=== PATIENT | female | born 1985 | race American Indian/Alaskan Native ===

== ENCOUNTER 2017-04-22 14:11 | Emergency (ER) | payer SELFPAY ==
[2017-04-22 14:43] LABS: Basophils % (Auto) 0.8 % (0.0-1.8); Eosinophils % (Auto) 1.3 % (0.0-4.3); Hematocrit 37.3 % (30.3-42.9); Hemoglobin 12.9 gm/dl (10.1-14.3); Mean Corpuscular HGB Conc 35 % (30-34); Mean Corpuscular Hemoglobin 31 pg (28-32); Mean Corpuscular Volume 89 fl (79-97); Red Cell Distribution Width 13.4 % (13.2-15.2); White Blood Count 6.9 K/mm3 (4.5-11.0)
[2017-04-22 15:07] LABS: Alanine Aminotransferase 15 units/L (7-56); Albumin/Globulin Ratio 1.2 %; Alkaline Phosphatase 44 units/L (35-129); Anion Gap 15 mmol/L; BUN/Creatinine Ratio 10; Blood Urea Nitrogen 7 mg/dL (7-17); Calcium 8.7 mg/dL (8.4-10.2); Carbon Dioxide 25 mmol/L (22-30); Chloride 100.2 mmol/L (98-107); Glucose 78 mg/dL (65-100); Lipase 27 units/L (13-60); Potassium 4.3 mmol/L (3.6-5.0); Sodium 136 mmol/L (137-145); Total Protein 7.3 g/dL (6.3-8.2)
[2017-04-22 15:20] LABS: Platelet Count 168 K/mm3 (140-440)
[2017-04-22 15:24] LABS: Bacteria,Urine 3+ /HPF (Negative); Bilirubin,Urine NEG (Negative); Blood,Urine NEG (Negative); Ketones,Urine NEG (Negative); Leukocyte Esterase,Urine NEG (Negative); Mucus,Urine FEW /HPF; Nitrite,Urine NEG (Negative); Protein,Urine <15 mg/dL mg/dL (Negative); Urobilinogen,Urine < 2.0 mg/dL (<2.0)
--- NOTE | 2017-04-22 22:18 | Emergency Department Report ---
ED Abdominal Pain HPI - General Chief Complaint: Abdominal Pain Stated Complaint: CHEST AND ABDOMINAL PAIN Time Seen by Provider: 04/22/17 22:02 Source: patient Mode of arrival: Ambulatory Limitations: No Limitations - History of Present Illness Initial Comments: Patient is a 32 years old female came today with a chief complaint of left upper quadrant pain and left flank pain for the last 3 days. Patient denied any hematuria or dysuria. No nausea no vomiting. MD Complaint: abdominal pain, flank pain -: days(s) Location: LUQ, L flank Radiation: none Severity scale (0 -10): 5 Quality: dull - Related Data Allergies Allergy/AdvReac Type Severity Reaction Status Date / Time latex Allergy Rash Verified 04/22/17 14:28 ED Review of Systems ROS: Stated complaint: CHEST AND ABDOMINAL PAIN Other details as noted in HPI Comment: All other systems reviewed and negative Constitutional: denies: chills, fever Respiratory: denies: cough Cardiovascular: denies: chest pain, palpitations Gastrointestinal: abdominal pain. denies: nausea, vomiting, diarrhea, constipation, hematemesis, melena, hematochezia Musculoskeletal: denies: back pain, joint swelling Neurological: denies: headache, weakness, numbness, paresthesias, confusion ED Past Medical Hx - Past Medical History Previous Medical History?: No - Surgical History Past Surgical History?: No - Social History Smoking Status: Never Smoker Substance Use Type: None ED Physical Exam - General Limitations: No Limitations General appearance: alert, in no apparent distress - Head Head exam: Present: atraumatic, normocephalic, normal inspection - Eye Eye exam: Present: normal appearance, PERRL - ENT ENT exam: Present: normal exam - Neck Neck exam: Present: normal inspection, full ROM. Absent: tenderness - Respiratory Respiratory exam: Present: normal lung sounds bilaterally. Absent: respiratory distress, wheezes, rales, rhonchi, stridor, chest wall tenderness - Cardiovascular Cardiovascular Exam: Present: regular rate, normal rhythm, normal heart sounds - GI/Abdominal GI/Abdominal exam: Present: soft, tenderness (left upper quadrant tenderness), normal bowel sounds. Absent: distended, guarding, rebound, rigid, mass, bruit, pulsatile mass, hernia - Extremities Exam Extremities exam: Present: normal inspection, normal capillary refill. Absent: full ROM, tenderness - Back Exam Back exam: Present: normal inspection, CVA tenderness (L). Absent: tenderness, CVA tenderness (R) - Neurological Exam Neurological exam: Present: alert, oriented X3, CN II-XII intact, normal gait, reflexes normal. Absent: motor sensory deficit - Skin Skin exam: Present: warm, intact, normal color ED Course Vital Signs 04/22/17 04/22/17 14:28 22:18 Temperature 99.1 F 97.3 F L Pulse Rate 99 H 65 Respiratory 18 16 Rate Blood Pressure 117/69 Blood Pressure 115/70 [Right] O2 Sat by Pulse 100 97 Oximetry - Reevaluation(s) Reevaluation #1: 04/23/17 00:31 Patient stated that she is feeling better. I informed the patient about her CT abdomen and pelvis results and the need for follow-up. Patient understood. ED Medical Decision Making - Lab Data Result diagrams: 04/22/17 14:34 04/22/17 14:34 - Radiology Data Radiology results: report [place] [address] Cat Scan Report Signed Patient: MONIQUE COURTNEY MR#: [id number] : 1985 Acct:[id number] Age/Sex: 32 / F ADM Date: 04/22/17 Loc: ED Attending Dr: Ordering Physician: TOMASZ QUINN Date of Service: 04/22/17 Procedure(s): CT abdomen pelvis wo con Accession Number(s): [id number] cc: TOMASZ QUINN FINAL REPORT PROCEDURE: CT ABDOMEN PELVIS WO CON TECHNIQUE: Computerized axial tomography of the abdomen and pelvis was performed without intravenous contrast. This study is performed without intravascular contrast material and its sensitivity for abdominal and pelvic pathology, including neoplasms, inflammation, abscess, free fluid, thrombosis, arterial dissection and infarction, is reduced compared with a contrast enhanced study. HISTORY: left flank pain COMPARISON: No prior studies are available for comparison. FINDINGS: Lower Lung cottrell: No focal abnormality seen. Upper Abdomen: Gallbladder is contracted. There is mild increased density centrally in the gallbladder. I cannot exclude sludge or gallstones. Gallbladder is otherwise unremarkable. The adrenal glands, the pancreas and the spleen are unremarkable. Kidneys, Ureters and Urinary bladder: No abnormalities are identified. No renal or ureteral calculi are seen. No renal masses are identified. There is no hydronephrosis. Urinary bladder is unremarkable. Retroperitoneum: Atherosclerotic changes are seen in the abdominal aorta. No aneurysm is visualized. Nonspecific subcentimeter lymph nodes are seen in the retroperitoneum. No pathologically enlarged lymph nodes are identified. Bowel: Bowel loops are unremarkable. No evidence of bowel obstruction. No free intraperitoneal gas is visualized. Normal-appearing appendix is visualized in the right lower quadrant directed into the right mid pelvis posteriorly. Reproductive organs: Uterus and adnexa are unremarkable. Other: There is extensive nodularity in the subcutaneous adipose tissue throughout the right and left side of the buttocks and extending into the perirectal adipose tissue. There are too numerous to count nodules in the subcutaneous adipose tissue in these locations measuring up to 13 millimeters in size. IMPRESSION: No evidence of renal or ureteral calculi. No evidence of hydronephrosis. Extensive nodularity seen in the subcutaneous adipose tissue of the right and left buttocks and extending into the perirectal tissue. Etiology is uncertain. This could represent extensive adenopathy. I cannot exclude idiopathic nodular panniculitis. Prior thermal injury could present in this manner. Consider Dermatology or surgery consultation.. Gallbladder is contracted. There is subtle increased density centrally. I cannot exclude sludge or gallstones. If clinically indicated follow-up gallbladder ultrasound could be obtained after appropriate fasting. Transcribed By: KATHERINE Dictated By: MAIRA BRUMFIELD MD Electronically Authenticated By: MAIRA BRUMFIELD MD Signed Date/Time: 04/22/171947 DD/ 47 TD/TT: 04/22/171947 Critical care attestation.: If time is entered above; I have spent that time in minutes in the direct care of this critically ill patient, excluding procedure time. ED Disposition Clinical Impression: Abdominal pain Disposition: DC-01 TO HOME OR SELFCARE Is pt being admited?: No Condition: Stable Instructions: Abdominal Pain (ED), Constipation (ED), High Fiber Diet (ED) Referrals: PRIMARY CARE, [Primary Care Provider] - 3-5 Days
[2017-04-22 22:19] VITALS: BP 115/70
--- NOTE | 2017-04-22 23:57 | Cat Scan Report ---
FINAL REPORT PROCEDURE: CT ABDOMEN PELVIS WO CON TECHNIQUE: Computerized axial tomography of the abdomen and pelvis was performed without intravenous contrast. This study is performed without intravascular contrast material and its sensitivity for abdominal and pelvic pathology, including neoplasms, inflammation, abscess, free fluid, thrombosis, arterial dissection and infarction, is reduced compared with a contrast enhanced study. HISTORY: left flank pain COMPARISON: No prior studies are available for comparison. FINDINGS: Lower Lung cottrell: No focal abnormality seen. Upper Abdomen: Gallbladder is contracted. There is mild increased density centrally in the gallbladder. I cannot exclude sludge or gallstones. Gallbladder is otherwise unremarkable. The adrenal glands, the pancreas and the spleen are unremarkable. Kidneys, Ureters and Urinary bladder: No abnormalities are identified. No renal or ureteral calculi are seen. No renal masses are identified. There is no hydronephrosis. Urinary bladder is unremarkable. Retroperitoneum: Atherosclerotic changes are seen in the abdominal aorta. No aneurysm is visualized. Nonspecific subcentimeter lymph nodes are seen in the retroperitoneum. No pathologically enlarged lymph nodes are identified. Bowel: Bowel loops are unremarkable. No evidence of bowel obstruction. No free intraperitoneal gas is visualized. Normal-appearing appendix is visualized in the right lower quadrant directed into the right mid pelvis posteriorly. Reproductive organs: Uterus and adnexa are unremarkable. Other: There is extensive nodularity in the subcutaneous adipose tissue throughout the right and left side of the buttocks and extending into the perirectal adipose tissue. There are too numerous to count nodules in the subcutaneous adipose tissue in these locations measuring up to 13 millimeters in size. IMPRESSION: No evidence of renal or ureteral calculi. No evidence of hydronephrosis. Extensive nodularity seen in the subcutaneous adipose tissue of the right and left buttocks and extending into the perirectal tissue. Etiology is uncertain. This could represent extensive adenopathy. I cannot exclude idiopathic nodular panniculitis. Prior thermal injury could present in this manner. Consider Dermatology or surgery consultation.. Gallbladder is contracted. There is subtle increased density centrally. I cannot exclude sludge or gallstones. If clinically indicated follow-up gallbladder ultrasound could be obtained after appropriate fasting.
== END 2017-04-23 01:00 | disposition home or self-care (01) ==
LOC: ED 14:11
DX: R10.12 Left upper quadrant pain (principal); Z91.040 Latex allergy status
CPT/HCPCS: 36415; 74176; 80053; 81001; 83690; 84703; 85025

== ENCOUNTER 2020-10-03 23:17 | Emergency (ER) | payer SELFPAY ==
[2020-10-03 23:27] VITALS: BP 138/82
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
== END 2020-10-04 03:00 | disposition home or self-care (01) ==
LOC: ED 23:17
DX: M54.9 Dorsalgia, unspecified (principal); R07.89 Other chest pain; Z91.040 Latex allergy status; Z79.899 Other long term (current) drug therapy; V49.49XA Driver injured in collision with other motor vehicles in traffic accident, initial encounter; Y92.410 Unspecified street and highway as the place of occurrence of the external cause; Y93.89 Activity, other specified; Y99.8 Other external cause status
CPT/HCPCS: 99282